=== PATIENT | female | born 1985 | race Caucasian/White ===

== ENCOUNTER 2022-12-16 17:39 | Emergency (ER) | payer OTHER ==
[~2022-12-16] VITALS: Ht 170.2 cm; Wt 95.3 kg
[2022-12-16 17:51] VITALS: BP_SYST 125; PULSE 74; RESP 20; TEMP 97.6; O2SAT 99
[2022-12-17] MEDS ORDERED: IBUPROFEN 600 MG TABLET PO ONE
[2022-12-17] MEDS ORDERED: ACETAMINOPHEN 325 MG TABLET PO ONE
[2022-12-17] MEDS ORDERED: ACETAMINOPHEN 325 MG TABLET ONE (00:18)
[2022-12-17 00:23] LABS: BILIRUBIN,URINE NEGATIVE (NEGATIVE); COLOR,URINE YELLOW (YELLOW); GLUCOSE,URINE NEGATIVE (NEGATIVE); KETONES,URINE TRACE (NEGATIVE); LEUKOCYTE ESTERASE ,URINE TRACE (NEGATIVE); NITRITE, URINE NEGATIVE (NEGATIVE); PH,URINE 6.5 (5.0-8.0); PROTEIN URINE NEGATIVE (NEGATIVE); UROBILINOGEN,URINE 0.2 (0.2-1.0)
[2022-12-17 00:28] LABS: BASOPHILS # (AUTO) 0.1 K/uL (0.0-0.2); BASOPHILS % (AUTO) 0.9 % (0.0-2.0); EOSINOPHILS # (AUTO) 0.1 K/uL (0.0-0.4); EOSINOPHILS % (AUTO) 1.1 % (0.0-4.0); HEMATOCRIT 36.6 % (36-48); HEMOGLOBIN 12.2 g/dL (12.0-16.0); LYMPHOCYTES % (AUTO) 46.1 % (20.5-51.5); MEAN CORPUSCULAR HEMOGLOBIN 32 pg (27-31); MEAN CORPUSCULAR HGB CONC 33 % (32-36); MEAN CORPUSCULAR VOLUME 95 fL (79.0-98.0); MONOCYTES # (AUTO) 0.7 K/uL (0.0-1.0); MONOCYTES % (AUTO) 7.6 % (1.7-9.3); NEUTROPHILS # (AUTO) 3.9 K/uL (1.8-7.7); NEUTROPHILS % (AUTO) 44.3 % (40.0-70.0); PLATELET COUNT (AUTO) 314 K/uL (130-430); RED BLOOD CELL COUNT(AUTO) 3.86 MIL/uL (4.2-6.2); RED CELL DISTRIBUTION WIDTH 14.6 % (9.0-15.0); WHITE BLOOD COUNT (AUTO) 8.7 K/uL (4.8-10.8)
[2022-12-17 00:46] LABS: ANION GAP 10 (5-15); CALCIUM 8.4 mg/dL (8.4-11.0); CARBON DIOXIDE 29 mmol/L (23-29); CHLORIDE 101 mmol/L (98-107); CREATININE 0.74 mg/dL (0.55-1.30); GFR AFRICAN AMERICAN 112 mL/min (>90); GLUCOSE 104 mg/dL (74-106); POTASSIUM 4.2 mmol/L (3.5-5.1); SODIUM SERUM 140 mmol/L (136-145); UREA NITROGEN, BLOOD 8 mg/dL (8-21)
[2022-12-17 00:48] LABS: GFR NON AFRICAN-AMERICAN 93 mL/min (>90)
[2022-12-17 00:54] LABS: ALANINE AMINOTRANSFERASE 128 U/L (12-78); ALBUMIN 3.8 g/dL (3.4-4.8); ASPARTATE AMINOTRANSFERASE 138 U/L (10-37); LIPASE 152 U/L (73-393); TOTAL BILIRUBIN 0.3 mg/dL (0.0-1.0); TOTAL PROTEIN, SERUM 7.4 g/dL (6.4-8.3)
[2022-12-17 00:57] LABS: BLOOD, URINE TRACE (NEGATIVE)
[2022-12-17 00:58] LABS: CLARITY/URINE HAZY (CLEAR)
[2022-12-17 00:59] LABS: BACTERIA,URINE RARE /HPF (None Seen); RBC,URINE 0-3 /HPF (0-3)
[2022-12-17] MEDS ORDERED: OMEP-268 PO ×3 (02:31→02:51)
[2022-12-17 02:55] VITALS: BP_SYST 108; PULSE 64; RESP 18; TEMP 98.6; O2SAT 100
== END 2022-12-17 02:55 | disposition home or self-care (01) ==
LOC: SED 17:39
DX: M54.6 Pain in thoracic spine (principal); F10.20 Alcohol dependence, uncomplicated; R74.01 Elevation of levels of liver transaminase levels; R07.9 Chest pain, unspecified; R19.7 Diarrhea, unspecified; Z79.899 Other long term (current) drug therapy; Y90.6 Blood alcohol level of 120-199 mg/100 ml
CPT/HCPCS: 36415; 71045; 80053; 81000; 83690; 84484; 85025; 85610-TC; 93005; 99285